=== PATIENT | female | born 1935 | race Caucasian/White ===

== ENCOUNTER 2020-01-26 22:16 | Emergency (ER) | payer OTHER ==
[~2020-01-26] VITALS: Ht 162.6 cm; Wt 56.7 kg
[2020-01-26 22:18] VITALS: BP 132/81
--- NOTE | 2020-01-26 22:18 | NUR ---
84 Y/O FEMALE BIBA FROM [facility] C/O RLQ ABDOMINAL PAIN X 5 DAYS , PT RATES PAIN 4/10 , CRAMPING . PT DENIES TRAUMA / FALL TO SITE. ABD FLAT , SOFT AND TENDER TO RLQ PALPATION. NORMOACTIVE BS IN ALL QUADRANTS. PT STATES TODAY AT THE FACILITY WAS BIRTHDAY DAY AND SHE ATE A LOT OF JUNK FOOD. PT + NAUSE , DIARRHEA . PT - FEVER, SOB, CP , BODY ACHES , CHILLS. PT RESTING IN BED , LOCKED AND IN LOWEST POSITION, HOB ELEVATED, SIDE RAIL X 2 FOR PT SAFETY. PT CONNECTED TO PULSE OX AND BP CUFF. PMH: HTN, HYPERLIPIDEMIA, DEMENTIA , DEPRESSION NKA
--- NOTE | 2020-01-26 22:18 | NUR ---
PT RODRICK BLS TO ER BED 06
--- NOTE | 2020-01-26 22:50 | NUR ---
Dr. Up at bedside for evaluation.
--- NOTE | 2020-01-26 22:57 | NUR ---
LAB AT BEDSIDE.
[2020-01-26 23:08] LABS: BASOPHILS % (AUTO) 0.4 % (0.0-2.0); EOSINOPHILS # (AUTO) 0.2 K/uL (0-0.4); HEMATOCRIT 44.5 % (36-48); HEMOGLOBIN 14.7 g/dL (12.0-16.0); LYMPHOCYTES # (AUTO) 1.3 K/uL (2.5-16.5); LYMPHOCYTES % (AUTO) 15.9 % (20.5-51.1); MEAN CORPUSCULAR HEMOGLOBIN 29 pg (27-31); MEAN CORPUSCULAR HGB CONC 33 g/dL (33-37); MEAN CORPUSCULAR VOLUME 89.5 fL (80-94); MONOCYTES # (AUTO) 0.6 K/uL (0.8-1.0); MONOCYTES % (AUTO) 7.1 % (1.7-9.3); NEUTROPHILS # (AUTO) 6.1 K/uL (1.8-7.7); NEUTROPHILS % (AUTO) 74.6 % (42.2-75.2); PLATELET COUNT (AUTO) 234 K/uL (140-450); RED BLOOD CELL COUNT(AUTO) 4.98 MIL/uL (4.20-5.40); RED CELL DISTRIBUTION WIDTH 13.8 % (11.6-13.7); WHITE BLOOD COUNT (AUTO) 8.1 K/uL (4.8-10.8)
--- NOTE | 2020-01-26 23:18 | NUR ---
PT TAKEN TO CT VIA [facility].
--- NOTE | 2020-01-26 23:36 | NUR ---
PT RETURNED FROM CT VIA [facility].
[2020-01-26 23:41] LABS: ALBUMIN 3.2 g/dL (3.4-5.0); ANION GAP 11.1 (8-16); ASPARTATE AMINOTRANSFERASE 13 U/L (15-37); CARBON DIOXIDE 32.1 mmol/L (21-32); CHLORIDE 104 mmol/L (98-107); GLUCOSE 113 mg/dL (74-106); LIPASE 251 U/L (73-393); POTASSIUM 3.2 mmol/L (3.5-5.1); SODIUM SERUM 144 mmol/L (136-145); TOTAL BILIRUBIN 0.3 mg/dL (0.0-1.0); UREA NITROGEN, BLOOD 14 mg/dL (7-18)
[2020-01-26] MEDS ORDERED: ONDANSETRON 4 MG ODT PO ONE (23:50)
[2020-01-26] MEDS ORDERED: POTASSIUM CHLORIDE 20% 40 MEQ/15 ML UDC PO ONE (23:50)
--- NOTE | 2020-01-27 01:10 | NUR ---
PT MOVED FROM BED 6 TO BED 1. REPORT RECIVED FROM TONY RODRIGEZ.
--- NOTE | 2020-01-27 01:39 | NUR ---
COVERING FOR LUNCH FOR PRIMARY RN ELIAZAR-- ASSUMED PT CARE AT THIS TIME.
--- NOTE | 2020-01-27 01:40 | NUR ---
[facility] FOR TRANSPORT OF PT BACK TO [facility]. ETA [phone].
--- NOTE | 2020-01-27 02:30 | NUR ---
PT RESTING IN BED WITH VISIBLE RISE AND FALL OF CHEST. PT RESPONSIVE TO VERBAL STIMULI. PT DENIES PAIN AT THIS TIME. PT ON SENIOR INSTRUMENTATION ENGINEER. VSS. BED IS LOCKED AND IN LOWEST POSITION.
--- NOTE | 2020-01-27 02:50 | NUR ---
ATTEMPTED TO CALL JAISON ESPITIA TO GIVE REPORT FOR PT TO BE TRANSFERED BACK. NO ANSWER. UNABLE TO LEAVE MESSAGE.
--- NOTE | 2020-01-27 03:36 | NUR ---
PT RESPONSIVE TO VERBAL STIMULI. PT DENIES PAIN AT THIS TIME. PT ON LINING STITCHER. VSS. BED IS LOCKED AND IN LOWEST POSITION.
--- NOTE | 2020-01-27 03:45 | NUR ---
ATTEMPTED TO CALL JAISON ESPITIA AGAIN TO GIVE REPORT ON PT. NO ANSWER. UNABLE TO LEAVE MESSAGE.
[2020-01-27 04:00] VITALS: BP 135/85
--- NOTE | 2020-01-27 04:00 | NUR ---
Patient discharged with v/s stable. Written and verbal after care instructions given and explained. Patient verbalized understanding. Transportation provided by [facility] to [facility]. All questions addressed prior to discharge. Advised to follow up with PMD.
--- NOTE | 2020-01-27 04:00 | NUR ---
PT PICKED UP FROM [facility] AND TAKEN BACK TO [facility]. STILL NO ANNSWER FROM FACILITY TO GIVE REPORT.
== END 2020-01-27 04:00 | disposition home or self-care (01) ==
LOC: MED 22:16
DX: R19.09 Other intra-abdominal and pelvic swelling, mass and lump (principal); R11.0 Nausea; R19.7 Diarrhea, unspecified; F32.9 Major depressive disorder, single episode, unspecified; I10 Essential (primary) hypertension; E78.5 Hyperlipidemia, unspecified; F03.90 Unspecified dementia, unspecified severity, without behavioral disturbance, psychotic disturbance, mood disturbance, and anxiety
CPT/HCPCS: 36415; 74176; 80053; 83690; 85025; 99285; Q0162

== ENCOUNTER 2021-07-29 10:51 | Observation (INO) | payer OTHER, SELFPAY ==
[~2021-07-29] VITALS: Ht 157.5 cm; Wt 49.9 kg
--- NOTE | 2021-07-29 10:54 | NUR ---
pt placed in bed 11 at this time
--- NOTE | 2021-07-29 10:58 | NUR ---
PT BIB [facility] FROM [facility] C/O FALL. PT AOX2 DENIES PAIN OR DISCOMFORT. HAD UNWITNESSED FALL. SMALL HEMATOMA TO BACK OF HEAD. NO ACUTE DISTRESS NOTED. SAFETY MAINTAINED.
[2021-07-29 11:00] VITALS: BP 153/76
--- NOTE | 2021-07-29 11:13 | NUR ---
left elbow skin tear cleaned, petroleum dressing placed with non adherent and wrapped with gauze roll at this time.
--- NOTE | 2021-07-29 11:15 | NUR ---
pt taken to ct at this time via [facility]
[2021-07-29 12:15] LABS: BASOPHILS % (AUTO) 0.6 % (0.0-2.0); EOSINOPHILS # (AUTO) 0.3 K/uL (0-0.4); EOSINOPHILS % (AUTO) 3.9 % (0.0-4.0); HEMATOCRIT 43.5 % (36-48); HEMOGLOBIN 14.6 g/dL (12.0-16.0); LYMPHOCYTES # (AUTO) 1.2 K/uL (2.5-16.5); LYMPHOCYTES % (AUTO) 16.6 % (20.5-51.1); MEAN CORPUSCULAR HEMOGLOBIN 30 pg (27-31); MEAN CORPUSCULAR HGB CONC 34 g/dL (33-37); MEAN CORPUSCULAR VOLUME 88.4 fL (80-94); MONOCYTES # (AUTO) 0.5 K/uL (0.8-1.0); MONOCYTES % (AUTO) 6.3 % (1.7-9.3); NEUTROPHILS # (AUTO) 5.4 K/uL (1.8-7.7); PLATELET COUNT (AUTO) 236 K/uL (140-450); RED BLOOD CELL COUNT(AUTO) 4.92 MIL/uL (4.20-5.40); WHITE BLOOD COUNT (AUTO) 7.4 K/uL (4.8-10.8)
[2021-07-29 12:17] LABS: NEUTROPHILS % (AUTO) 72.6 % (42.2-75.2)
[2021-07-29 12:37] LABS: ALBUMIN 2.9 g/dL (3.4-5.0); ANION GAP 11.7 (8-16); ASPARTATE AMINOTRANSFERASE 12 U/L (15-37); CARBON DIOXIDE 28.8 mmol/L (21-32); CHLORIDE 108 mmol/L (98-107); CREATININE 0.7 mg/dL (0.6-1.3); GLUCOSE 98 mg/dL (74-106); POTASSIUM 3.5 mmol/L (3.5-5.1); SODIUM SERUM 145 mmol/L (136-145); TOTAL BILIRUBIN 0.3 mg/dL (0.0-1.0); UREA NITROGEN, BLOOD 18 mg/dL (7-18)
[2021-07-29 13:00] LABS: PROTHROMBIN TIME 10.2 secs (10.8-13.4)
--- NOTE | 2021-07-29 14:56 | NUR ---
RECEVIED REPORT FROM RAIN PICKERING FOR TRANSFER OF CARE
--- NOTE | 2021-07-29 15:02 | NUR ---
BEN CROW COLLECTED AND WALKED TO LAB
--- NOTE | 2021-07-29 15:03 | NUR ---
Patient appears to be resting comfortably in bed. Vital Signs within normal limits. Respirations even and unlabored. Bed in lowest position and locked
--- NOTE | 2021-07-29 15:23 | NUR ---
86 y/o female bib amb from [facility] reports pt had unwitnessed fall around 0950 today, was found on ground, no loc noted. pt has left occipital hematoma and left elbow skin tear. pt denies any pain at this time. pt is a&ox3 to name, and place, non ambulatory, normal to baseline. pmh: dementia, htn nka
--- NOTE | 2021-07-29 15:32 | NUR ---
PT REPOSITIONED IN BED AND PROVIDED WITH CALL LIGHT
--- NOTE | 2021-07-29 16:59 | NUR ---
Patient appears to be resting comfortably in bed. Vital Signs within normal limits. Respirations even and unlabored. BED IN LOWEST POSITION AND LOCKED. LIGHTS TURNED OFF IN ROOM
[2021-07-29] MEDS ORDERED: OMEP40EC24 PO (17:21)
[2021-07-29] MEDS ORDERED: FAMO-90 PO (17:21)
[2021-07-29] MEDS ORDERED: XAR10 PO (17:21)
[2021-07-29] MEDS ORDERED: MULT-2579 PO (17:21)
[2021-07-29] MEDS ORDERED: CRAN1CAP13 PO (17:21)
[2021-07-29] MEDS ORDERED: ALEN70TA1 PO (17:21)
[2021-07-29] MEDS ORDERED: DONE10TA10 PO (17:21)
[2021-07-29] MEDS ORDERED: MIRT-92 PO (17:21)
[2021-07-29] MEDS ORDERED: CALCIUM PO (17:21)
[2021-07-29] MEDS ORDERED: ACET-10509 PO (17:21)
[2021-07-29] MEDS ORDERED: HYDR-3293 PO (17:21)
[2021-07-29] MEDS ORDERED: LORA10TA19 PO (17:21)
[2021-07-29] MEDS ORDERED: ONDANSETRON 4 MG/2 ML VIAL IVP PRN (17:25)
[2021-07-29] MEDS ORDERED: ACETAMINOPHEN 325 MG TAB PO PRN (17:25)
--- NOTE | 2021-07-29 18:19 | NUR ---
PT PROVIDED WITH DINNER TRAY BEDSIDE AND POSITIONED TO EAT
--- NOTE | 2021-07-29 19:22 | NUR ---
Received report from Ivett RODRIGEZ for continuation of care
--- NOTE | 2021-07-29 19:22 | NUR ---
Pt report given to RAIN ELLIS. Transfer of care at this time.
--- NOTE | 2021-07-29 20:40 | NUR ---
Patient will be admitted to care of Addy FRAZIER. Admited to telemetry. Will go to room 110a. Belongings list completed. Report to Brea RODRIGEZ.
[2021-07-29] MEDS ORDERED: DONEPEZIL 10 MG TAB PO SCH (21:00)
[2021-07-29] MEDS ORDERED: MIRTAZAPINE 15 MG TAB PO SCH (21:00)
--- NOTE | 2021-07-29 22:14 | NUR ---
pt tx to floor
[2021-07-29 22:30] VITALS: BP 136/85
--- NOTE | 2021-07-29 22:30 | NUR ---
RECEIVED REPORT FROM ESTHETICIAN/SPA COORDINATOR NURSE OVER THE PHONE, PT WAS BROUGHT UP TO FLOOR BY REYNALDO. SHE IS AOX1 ON ROOM AIR WITH A SKIN TEAR ON LEFT F/ARM. PT HAS A RIGHT HAND 22G INTACT AND SALINE LOCKED. PT ADMITTED FOR CLOSED HEAD WOUND. AFTER AN UNWITNESSED FALL AT HER SNF. SHE IS NOTED WITH A SMALL BRUISE TO THE BACK OF HER HEAD WELL THE SKIN TEAR AND SMALL CUT ON HER LEFT F/ARM. OTHERWISE SKIN INTACT. PT DENIES ANY PAIN . SHE IS CONFUSED AND IS CONCERNING HERSELF WITH HER PURSE AND KEYS. EXPLAINED TO PT THAT SHE NO LONGER LIVES IN A HOUSE BUT AT A SNF AND THAT HER PURSE IS NOT WITH HER. PT IGNORED THE EXPLANATION AND CONTINUES TO ASK FOR HER KEYS AND PURSE. SHE WAS PLACED ON FALLS PRECAUTIONS V/S FOLLOWS: T 97.5 P 78 R 20 B/P 136/85 02 97% ON ROOM AIR. WILL PROVIDE FREQUENT ROUNDS DOOR OPEN PT WITHIN LINE OF SIGHT.
--- NOTE | 2021-07-29 22:45 | NUR ---
PT WAS GIVEN ORDERED REMERON PO. EXPLAINED TO PT PURPOSE OF MEDICATION WAS FOR HER MEMORY AND DEMENTIA. PT VERBALIZED UNDERSTANDING.
--- NOTE | 2021-07-29 23:30 | NUR ---
PT ASKING TO GET UP OUT OF BED TO USE THE TOILET. PT IS INCONTINENT AND WAS CLEANED AND CHANGED IN BED. PT AGAIN REORIENTED TO HER SURROUNDINGS. PT EVALUATION WAS ORDERED AND IS PENDING. PT CONTINUES TO WORRY ABOUT HER BELONGINGS AND SITS UP TO GET OUT OF BED , BUT IS ABLE TO BE VERBALLY REDIRECTED. PT DENIES PAIN AND REFUSED AND FOOD OR DRINK AT THIS TIME. ALL FALLS PRECAUTIONS PROVIDED.
[2021-07-30] VITALS: BP 170/79
--- NOTE | 2021-07-30 01:00 | NUR ---
PT IS ON TELE MONITORING. V/S FOLLOWS: T 97.7 P 78 R 20 B/P 188/88 02 95% ON ROOM AIR. PT HAS NO PRN FOR HTN. B/P RETAKEN IN RIGHT CALVE AND IS 170/79. CALLED [facility] MD ALDANA PLAY LEADER FOR PRN ORDERS.
--- NOTE | 2021-07-30 01:34 | NUR ---
RECEIVED AND PLACED ORDER FROM TIRE MAN MD ALDANA FOR PRN HYDRALAZINE FOR SBP OVER 160.
[2021-07-30] MEDS ORDERED: hydrALAZINE 20 MG/ML VIAL IVP PRN (01:35)
--- NOTE | 2021-07-30 02:09 | NUR ---
PT FOUND TRYING TO GET OUT OF BED. SHE WAS TURNED AND CHANGED B/P RETAKEN IT WAS 162/85, SHE WAS GIVEN IVP PRN HYDRALAZINE FOR HTN. WILL MONITOR FOR EFFECT.
[2021-07-30 04:00] VITALS: BP 143/78
--- NOTE | 2021-07-30 05:11 | NUR ---
PT IN BED V/S FOLLOWS: T 97.9 P 99 B/P 143/78 02 97% ON ROOM AIR. PT WAS TURNED, CHANGED AND REPOSITIONED IN BED.
[2021-07-30 08:00] VITALS: BP 132/82
[2021-07-30 08:18] LABS: ANION GAP 12.3 (8-16); CARBON DIOXIDE 29.9 mmol/L (21-32); CHLORIDE 108 mmol/L (98-107); CREATININE 0.5 mg/dL (0.6-1.3); GLUCOSE 79 mg/dL (74-106); POTASSIUM 3.2 mmol/L (3.5-5.1); SODIUM SERUM 147 mmol/L (136-145); UREA NITROGEN, BLOOD 14 mg/dL (7-18)
[2021-07-30 08:21] LABS: PROTHROMBIN TIME 10.4 secs (10.8-13.4)
[2021-07-30 08:23] LABS: BASOPHILS % (AUTO) 0.4 % (0.0-2.0); EOSINOPHILS # (AUTO) 0.2 K/uL (0-0.4); EOSINOPHILS % (AUTO) 2.7 % (0.0-4.0); HEMATOCRIT 44.8 % (36-48); HEMOGLOBIN 15.3 g/dL (12.0-16.0); LYMPHOCYTES # (AUTO) 1.4 K/uL (2.5-16.5); LYMPHOCYTES % (AUTO) 16.6 % (20.5-51.1); MEAN CORPUSCULAR HEMOGLOBIN 30 pg (27-31); MEAN CORPUSCULAR HGB CONC 34 g/dL (33-37); MEAN CORPUSCULAR VOLUME 86.9 fL (80-94); MONOCYTES # (AUTO) 0.6 K/uL (0.8-1.0); MONOCYTES % (AUTO) 6.9 % (1.7-9.3); NEUTROPHILS # (AUTO) 6.1 K/uL (1.8-7.7); NEUTROPHILS % (AUTO) 73.4 % (42.2-75.2); PLATELET COUNT (AUTO) 243 K/uL (140-450); RED BLOOD CELL COUNT(AUTO) 5.16 MIL/uL (4.20-5.40); RED CELL DISTRIBUTION WIDTH 13.9 % (11.6-13.7); WHITE BLOOD COUNT (AUTO) 8.3 K/uL (4.8-10.8)
--- NOTE | 2021-07-30 08:50 | NUR ---
PT. IS AWAKE, NO OPEN WOUND, SKIN TEARS TO FOREARMS NO S/S OF INFECTION WILL TREAT WITH PROTOCOL. Addendum: 07/30/21 at 1022 by Hannah Hopson RN (Grace) PT. WITH LOW RAE SCALE AT RISK, CONTINUE TO FOLLOW PRESSURE INJURY PREVENTION INTERVENTIONS. -CLEANSE FOREARMS SKIN TEAR WITH NS. PAT DRY, APPLY OIL EMULSION DRESSING AND COVER WITH DRY DRESSING QD AND PRN IF SOILING. -TURN AND REPOSITION PATIENT Q 2H -INSPECT SKIN UNDER AND AROUND MEDICAL DEVICES. -ASSESS AND MONITOR SKIN CONDITION DURING POSITION CHANGE -OFFLOAD BILATERAL HEELS BY PLACING PILLOWS UNDER CALVES AT ALL TIMES, UNLESS OTHERWISE CONTRAINDICATED -APPLY HEEL PROTECTORS -PRESSURE REDISTRIBUTION SURFACE AND OFFLOADING SACRALCOCCYX -MANAGE MOISTURE, FRICTION AND SHEAR BY KEEP SKIN CLEAN AND DRY. -MANAGE FRICTION AND SHEAR BY USING LIFT SHEET TO REPOSITION PATIENT -HOB 30 DEGREE TOLERATE -PLEASE FOLLOW RD RECOMMENDATIONS PLEASE NOTIFIED WOUND CARE NURSE FOR ANY CHANGE OF SKIN CONDITION
[2021-07-30] MEDS ORDERED: PANTOPRAZOLE 40 MG TABEC PO SCH (09:00)
[2021-07-30] MEDS ORDERED: LOSARTAN 50 MG TAB PO SCH (09:00)
--- NOTE | 2021-07-30 09:16 | NUR ---
DC PLANNING: CLINICAL REVIEW FAXED TO [facility] AT [facility]. PATIENT COMES FROM [facility] AND HAS A H/O FALLS. PATIENT FELL AT THE FACILITY AND SUSTAINED A HEMATOMA TO THE HEAD. CT HEAD SHOWS REMOTE LACUNAR INFARCT, PATIENT WITH CHRONIC PE ON XARELTO OP. P.T EVALUATED THE PATIENT AND STATES SHE'S A HIGH RISK FOR FALLS, RECOMMENDS SNF PLACEMENT FOR CONTINUED THERAPY. CM WILL SPEAK WITH THE PATIENT REGARDING DC CHOICES, AND THE ATTENDING MD FOR ORDER AND WILL FOLLOW FOR NEEDS. Addendum: 07/30/21 at 1454 by Chela Montejo CM DC PLANNING: KAYLEY SPOKE WITH [facility], PATIENT HAS DEMENTIA AND REQUIRES ASSISTANCE WITH BATHING AND TOILETING SHE IS INCONTINENT. SHE IS ABLE TO WALK A FEW FEET USING A FWW. KAYLEY THEN SPOKE WITH HER DAUGHTER NYASIA WHO STATES THAT SHE TAKES HER MOTHER HOME EVERY WEDNESDAY AND THAT SHE IS ABLE TO WALK 300 FT WITH A FWW OR CANE. NO H/O FALLS UNTIL RECENTLY, PATIENT HAS BEEN AT [facility] FOR 3 YEARS AND FAMILY IS LOOKING FOR ANOTHER HALFWAY. NYASIA WILL SPEAK WITH HER BROTHER WHO IS [facility] [employer] [facility] [place] REGARDING SNF PLACEMENT FOR CONTINUED P.T.. CM WILL FOLLOW. Addendum: 07/30/21 at 1531 by Chela Montejo CM DC PLANNING; KAYLEY SPOKE WITH THE PATIENTS SON BRENT, HE IS OPTING FOR THE PATIENT TO RETURN TO [facility]. KAYLEY ENDORSED THAT THERE IS A DC ORDER, BRENT'S WILL PICK THE PATIENT UP, ASKS THAT NURSING CALL WHEN PATIENT'S DC PAPERWORK IS COMPLETED AND PATIENT IS READY TO LEAVE. ABOVE ENDORSED TO THE PATIENTS NURSE MARY, KAYLEY WILL FOLLOW.
--- NOTE | 2021-07-30 09:17 | NUR ---
PATIENT HAS BEEN SCREENED AND CATEGORIZED MODERATE NUTRITION RISK. PATIENT WILL BE SEEN WITHIN 3-[address] DA[address] OF ADMISSION. [address]
--- NOTE | 2021-07-30 09:57 | NUR ---
SCHEDULED MEDICATIONS DUE GIVEN. WILL CONTINUE TO MONITOR.
[2021-07-30 12:00] VITALS: BP 126/69
--- NOTE | 2021-07-30 13:00 | NUR ---
ASSISTED TEST ENG IN CLEANING AND REPOSITIONING PATIENT. WILL CONTINUE TO MONITOR.
[2021-07-30 16:58] LABS: APPEARANCE,URINE CLEAR (CLEAR); BILIRUBIN,URINE NEGATIVE (NEGATIVE); BLOOD, URINE TRACE-I (NEGATIVE); COLOR,URINE YELLOW (YELLOW); LEUKOCYTE ESTERASE ,URINE TRACE (NEGATIVE); NITRITE, URINE NEGATIVE (NEGATIVE); UGLUCOSE NEGATIVE (NEGATIVE)
--- NOTE | 2021-07-30 17:00 | NUR ---
ASSISTED HAND I CUTTER IN CLEANING AND REPOSITIONING PATIENT. WILL CONTINUE TO MONITOR.
--- NOTE | 2021-07-30 18:19 | NUR ---
PATIENT'S FAMILY MEMBER AT LOBBY TO TAKE PATIENT TO [facility]. PATIENT DISCHARGED AT THIS TIME IN STABLE. CONDITION.
[2021-07-30 20:37] LABS: RBC,URINE 0-5 /HPF (0-5); WBC,URINE 0-5 /HPF (0-5)
[2021-07-30 20:38] LABS: CALCIUM OXALATE CRYSTALS,UR None Seen /HPF (None Seen); COARSE GRANULAR CASTS,URINE None Seen /LPF (None Seen); FINE GRANULAR CASTS,URINE None Seen /LPF (None Seen); HYALINE CASTS, URINE None Seen /LPF (None Seen); OTHER CASTS, URINE None Seen /LPF (None Seen); OTHER CRYSTALS,URINE None Seen /HPF (None Seen); RED BLOOD CELL CASTS,URINE None Seen /LPF (None Seen); TRICHOMONAS,URINE None Seen /HPF (None Seen); TRIPLE PHOSPHATE CRYSTAL,UR None Seen /HPF (None Seen); URIC ACID CRYSTALS,URINE None Seen /HPF (None Seen); URINE AMORPHOUS URATE None Seen /HPF (None Seen); WAXY CASTS,URINE None Seen /LPF (None Seen); YEAST,URINE None Seen /HPF (None Seen)
== END 2021-07-30 18:10 | disposition home health service (06) ==
LOC: MED 10:51 → MTU 17:29
PROVIDERS: ADMIT Internal Medicine; ATTEND Internal Medicine
DX: S00.03XA Contusion of scalp, initial encounter (principal); Z20.822 Contact with and (suspected) exposure to COVID-19; E78.5 Hyperlipidemia, unspecified; F03.90 Unspecified dementia, unspecified severity, without behavioral disturbance, psychotic disturbance, mood disturbance, and anxiety; W18.30XA Fall on same level, unspecified, initial encounter; Y93.89 Activity, other specified; Y92.89 Other specified places as the place of occurrence of the external cause; Y99.8 Other external cause status; Z86.711 Personal history of pulmonary embolism; Z79.899 Other long term (current) drug therapy; Z79.01 Long term (current) use of anticoagulants
CPT/HCPCS: 36415; 70450; 71045; 80048; 80053; 81001; 83735; 83880; 84484; 85025; 85610; 85730; 87081; 87086; 87426; 93005; 96374; 97163; 97530; 99285; G0378; J0360; Q0092